=== PATIENT | male | born 1970 | race Caucasian/White ===

== ENCOUNTER 2017-03-23 16:25 | Emergency (ER) | payer SELFPAY ==
[~2017-03-23] VITALS: Ht 175.3 cm; Wt 72.6 kg
[2017-03-23 16:25] VITALS: BP_SYST 162
== END 2017-03-23 17:44 | disposition home or self-care (01) ==
LOC: SED 16:25
DX: F32.9 Major depressive disorder, single episode, unspecified (principal); F41.9 Anxiety disorder, unspecified
CPT/HCPCS: 99283